=== PATIENT | female | born 1950 | race Caucasian/White ===

== ENCOUNTER 2024-06-26 08:00 | Outpatient (CLI) | payer MEDICARE ==
--- NOTE | 2024-06-26 15:32 | XRAY Report ---
PROCEDURE: Wrist 3+V RT INDICATIONS: PAIN IN RIGHT WRIST TECHNIQUE: 3 views of the wrist were acquired. COMPARISON: None. FINDINGS: Bones: No fractures or dislocations. Moderate to severe first CMC joint and scaphotrapezial joint os teoarthritic changes are seen. Moderate osteoarthritic changes are noted in second through fourth CMC joints. No suspicious bony lesions. Soft tissues: No suspicious soft tissue calcifications or masses. Dorsal wrist soft tissue swellin g is seen. IMPRESSION: No acute wrist fracture or dislocation. 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 Reviewed by: Rohit Christian MD on 06/26/2024 3:30 PM PDT Approved by: Rohit Christian MD on 06/26/2024 3:30 PM PDT Station ID: [id number]
== END 2024-06-26 23:59 | disposition home or self-care (01) ==
LOC: DI.S 08:00
PROVIDERS: ATTEND Physician Assistant
DX: M19.031 Primary osteoarthritis, right wrist (principal)